=== PATIENT | male | born 1995 | race Two or more races ===

== ENCOUNTER 2020-03-21 04:36 | Observation (INO) | payer SELFPAY ==
[~2020-03-21] VITALS: Ht 172.7 cm; Wt 67.1 kg
[2020-03-21] MEDS ORDERED: ONDANSETRON HCL/PF 4 MG/2 ML VIAL ONE (04:49)
--- NOTE | 2020-03-21 04:55 | NUR ---
PT [facility] FOR ALCOHOL INTOXICATION AND NAUSEA. PT DOZING INTERMITTENTLY, OPENS EYES TO VOICE. AAOX4. VITAL SIGNS STABLE. RESPIRATIONS EVEN AND UNLABORED. SKIN WARM AND INTACT. NO ACUTE DISTRESS NOTED AT THIS TIME. PLACED ON MONITOR, WILL CONTINUE TO MONITOR.
[2020-03-21] MEDS ORDERED: ONDANSETRON HCL/PF 4 MG/2 ML VIAL IV ONE (05:00)
[2020-03-21] MEDS ORDERED: ONDANSETRON HCL/PF 4 MG/2 ML VIAL IVP ONE (05:30)
[2020-03-21] MEDS ORDERED: IV NS 0.9% 1,000 ML BAG IV ONE (05:30)
--- NOTE | 2020-03-21 05:30 | NUR ---
APPLICATION RELEASE MANAGER AT BEDSIDE FOR BLOOD DRAW
--- NOTE | 2020-03-21 05:35 | NUR ---
PER DR. GARCIA, HOLD SECOND DOSE OF ZOFRAN 4MG IV
[2020-03-21 05:39] LABS: BASOPHILS % (AUTO) 0.6 % (0.0-2.0); EOSINOPHILS % (AUTO) 1.2 % (0.0-6.0); HEMATOCRIT 45 % (39-51); HEMOGLOBIN 15.4 g/dL (13.5-17.5); LYMPHOCYTES # (AUTO) 1.5 /CMM (0.8-4.8); LYMPHOCYTES % (AUTO) 24.6 % (20.0-44.0); MEAN CORPUSCULAR HGB CONC 34 g/dl (31.0-36.0); MEAN CORPUSCULAR VOLUME 92 fL (80-96); MONOCYTES # (AUTO) 0.5 /CMM (0.1-1.30); MONOCYTES % (AUTO) 8.4 % (2.0-12.0); NEUTROPHILS % (AUTO) 65.2 % (43.0-81.0); PLATELET COUNT (AUTO) 198 /CMM (150-450); RED BLOOD CELL COUNT(AUTO) 4.89 MIL/uL (4.5-6.0); WHITE BLOOD COUNT (AUTO) 6.2 K/uL (4.3-11.0)
--- NOTE | 2020-03-21 05:40 | NUR ---
PT UNABLE TO PROVIDE URINE SAMPLE AT THIS TIME. MD LEMUS
[2020-03-21 06:03] LABS: ALBUMIN 4.5 g/dL (3.4-5.0); BILIRUBIN,DIRECT 0.2 mg/dL (0.0-0.2); BILIRUBIN,TOTAL 0.6 mg/dL (0.2-1.0); CALCIUM, SERUM 8.5 mg/dL (8.5-10.1); CREATININE 1.2 mg/dL (0.6-1.3); POTASSIUM 3.8 mmol/L (3.5-5.1)
--- NOTE | 2020-03-21 07:17 | NUR ---
RECEIVED REPORT FROM NEPTALI CHAVEZ FOR [facility]. ASSESSED PT ON BED ASLEEP EASILY AROUSABLE, NOT IN RESPIRATORY DISTRESS, V/S STABLE, KEPT RESTED AND COMFORTABLE. WILL CONTINUE TO MONITOR.
--- NOTE | 2020-03-21 07:41 | NUR ---
Paged epic Dr. Gibson for admission panel
--- NOTE | 2020-03-21 08:52 | NUR ---
PT IS AWAKE AND ALERT, AAOX4, NOT IN RESPIRATORY DISTRESS, V/S STABLE, KEPT RESTED AND COMFORTABLE. WILL CONTINUE TO MONITOR. FOOD TRAY PROVIDED.
--- NOTE | 2020-03-21 09:40 | NUR ---
IV removed. Catheter intact and site benign. Pressure and 4x4 applied to site. No bleeding noted.
--- NOTE | 2020-03-21 09:40 | NUR ---
Patient does not wish to proceed with medical care recommended by Dr. [place] and Dr. Swan. Patient given information related to possible complications, up to and including , which could occur as a result of leaving the hospital at this time. Patient verbalizes understanding of risks involved due to leaving against medical advice. Patient has signed AMA form.
[2020-03-21 09:41] VITALS: BP 122/63
== END 2020-03-21 09:40 | disposition left against medical advice (07) ==
LOC: ER 04:38 → EDBD 04:38 → OBSER 08:25 → INTOOBSV 08:25
PROVIDERS: ADMIT Student in an Organized Health Care Education/Training Program; ATTEND Student in an Organized Health Care Education/Training Program
DX: R11.0 Nausea (principal); F10.129 Alcohol abuse with intoxication, unspecified; F90.9 Attention-deficit hyperactivity disorder, unspecified type; Z79.899 Other long term (current) drug therapy; Y90.7 Blood alcohol level of 200-239 mg/100 ml
CPT/HCPCS: 36415; 80048; 80076; 80307; 85025; G0378; J2405; J7030; G0480